=== PATIENT | male | born 1990 | race Caucasian/White ===

== ENCOUNTER 2016-09-02 22:00 | Emergency (ER) | payer SELFPAY ==
[~2016-09-02] VITALS: Ht 172.7 cm; Wt 67.4 kg
[2016-09-02] MEDS ORDERED: METH500T7 PO (22:23)
[2016-09-02] MEDS ORDERED: KETOROLAC 30 MG/1 ML ONE (22:59)
[2016-09-02] MEDS ORDERED: KETOROLAC 30 MG/1 ML IM ONE (23:00)
[2016-09-02 23:44] VITALS: BP 120/82
== END 2016-09-02 23:46 | disposition home or self-care (01) ==
LOC: ED 23:40
DX: R07.89 Other chest pain (principal); M94.0 Chondrocostal junction syndrome [Tietze]
CPT/HCPCS: 71020; 93005; 96372; 99284; J1885